=== PATIENT | female | born 1980 | race Caucasian/White ===

== ENCOUNTER 2020-10-18 08:16 | Emergency (ER) | payer SELFPAY ==
[~2020-10-18] VITALS: Ht 187.9 cm; Wt 113.4 kg
[~2020-10-18 08:16] MED LIST: ALBUTEROL0.09 MG/A2 IH; AMOXICILLIN500 MG PO; ANAPROX DS550 MG PO; AUGMENTIN 875875 MG PO; B12-METHYL1000 MCG PO; BACTRIM DS 8001 TA1 PO; BACTROBAN CREAM15 GM PO; CATAPRES0.1 MG PO; CELEXA10 MG PO; CLARITIN10 MG PO; CYMBALTA60 M1 PO; DAYPRO600 M1 PO; DIFLUCAN150 MG PO; EXCEDRIN MIGRAI1 TA1 PO; FLEXERIL5 MG PO; FLONASE 0.05% 121 EA NAS; HYDROCODONE BIT1 T11 PO; HYDRODIURIL25 MG PO; K-DUR 20MEQ20 MEQ PO; KEFLEX500 MG PO; LASIX20 MG PO; LISINOPRIL HCTZ1 TA1 PO; LISINOPRIL20 MG PO; LISINOPRIL40 MG PO; LOPRESSOR100 MG PO; LOPRESSOR25 MG; Lunesta2 MG PO; MOTRIN800 MG PO; NAPROSYN500 MG PO; NORCO 325 MG-51 TAB PO; NORVASC10 MG PO; NORVASC5 MG PO; PAROXETINE20 MG PO; SYNTHROID,LEVO25 MCG PO; TESSALON PERLE200 MG PO; TRAMADOL HCL50 MG PO; TRIMOX500 MG PO; VICODIN 500 MG-1 TAB PO; VISTARIL50 MG PO; ZESTRIL,PRINIVI20 MG PO; ZESTRIL40 MG PO; ZITHROMAX Z PA250 MG PO; [UNRECOGNIZED DRUG - OTHER] T
[2020-10-18 08:33] VITALS: BP 150/94
[2020-10-18] MEDS ORDERED: LOSARTAN POTAS100 M1 PO (08:35)
[2020-10-18 09:29] LABS: BASO % 0.2 % (0.0-1.0); EOS % 0.6 % (1.0-4.0); HEMATOCRIT 32.6 % (37.0-47.0); LYMPH # 1.2 10*3/uL (1.3-4.4); LYMPH % 19.2 % (27.0-41.0); MEAN CELL VOLUME 81.7 fl (81.0-99.0); MEAN CORPUSCULAR HGB 24.8 pg (27.0-31.0); MEAN CORPUSCULAR HGB CONC 30.4 g/dl (33.0-37.0); MONO # 0.6 10*3/uL (0.1-1.0); MONO % 9.1 % (3.0-9.0); NEUT # 4.4 10*3/uL (2.3-7.9); NEUT % 70.6 % (47.0-73.0); PLATELET COUNT AUTOMATED 311 10*3/uL (130-400); RED BLOOD COUNT 3.99 10*6/uL (4.10-5.10); RED CELL DISTRI WIDTH 17.6 % (0-14.5); WHITE BLOOD COUNT 6.3 10*3/uL (4.8-10.8)
[2020-10-18 09:52] LABS: ALBUMIN 3.5 gm/dl (3.1-4.5); ALKALINE PHOSPHATASE 71 U/L (45-117); BUN 10 mg/dl (7-24); CHLORIDE 110 mmol/L (98-107); CREATININE 0.72 mg/dL (0.55-1.02); LIPASE 133 U/L (73-393); POTASSIUM 3.7 mmol/L (3.5-5.1); SGOT/AST 10 IU/L (3-35); SGPT/ALT 16 U/L (12-78); SODIUM 140 mmol/L (136-145)
[2020-10-18 09:54] LABS: TROPONIN I < 0.015 ng/ml (<0.045)
[2020-10-18 10:21] LABS: BILIRUBIN Negative (Negative); BLOOD Negative (Negative); CLARITY Cloudy (Clear); COLOR Dark Yellow (Yellow); GLUCOSE Negative (Negative); KETONE Trace (Negative); LEUKO ESTERASE Trace (Negative); NITRITE Negative (Negative); PH 5.5 (4.5-8.0); SPECIFIC GRAVITY 1.025 (1.001-1.030)
[2020-10-18 10:32] LABS: BACTERIA 1+; MUCOUS 2+; RBC 0-2 rbc/hpf (0-2); WBC 0-2 wbc/hpf (0-5)
[2020-10-18] MEDS ORDERED: Motrin,Rufen800 MG PO (13:01)
== END 2020-10-18 13:20 | disposition home or self-care (01) ==
LOC: ED 08:16
PROVIDERS: Emergency Medicine
DX: Z04.3 Encounter for examination and observation following other accident (principal); Z79.899 Other long term (current) drug therapy; W19.XXXA Unspecified fall, initial encounter; Y93.89 Activity, other specified; Y92.89 Other specified places as the place of occurrence of the external cause; Y99.8 Other external cause status

== ENCOUNTER 2020-12-27 11:00 | Emergency (ER) | payer SELFPAY ==
[~2020-12-27] VITALS: Ht 185.4 cm; Wt 113.4 kg
[~2020-12-27 11:00] MED LIST changes: +LOSARTAN POTAS100 M1 PO; +Motrin,Rufen800 MG PO
[2020-12-27 11:47] LABS: BILIRUBIN Negative (Negative); BLOOD Negative (Negative); CLARITY Cloudy (Clear); COLOR Yellow (Yellow); GLUCOSE Negative (Negative); KETONE Trace (Negative); LEUKO ESTERASE 1+ (Negative); NITRITE Negative (Negative); SPECIFIC GRAVITY 1.025 (1.001-1.030)
[2020-12-27 12:10] LABS: BACTERIA TRACE; EPITHELIAL CELLS TNTC; MUCOUS 2+
[2020-12-27 13:32] LABS: BASO % 0.3 % (0.0-1.0); EOS # 0.1 10*3/uL (0.0-0.4); EOS % 0.9 % (1.0-4.0); HEMATOCRIT 28.5 % (37.0-47.0); LYMPH # 1.8 10*3/uL (1.3-4.4); LYMPH % 27.9 % (27.0-41.0); MEAN CELL VOLUME 81.2 fl (81.0-99.0); MEAN CORPUSCULAR HGB 23.9 pg (27.0-31.0); MEAN CORPUSCULAR HGB CONC 29.5 g/dl (33.0-37.0); MEAN PLATELET VOLUME 10.1 fl (9.6-12.3); MONO # 0.6 10*3/uL (0.1-1.0); MONO % 8.6 % (3.0-9.0); NEUT # 4.1 10*3/uL (2.3-7.9); NEUT % 62.1 % (47.0-73.0); PLATELET COUNT AUTOMATED 264 10*3/uL (130-400); RED BLOOD COUNT 3.51 10*6/uL (4.10-5.10); RED CELL DISTRI WIDTH 18.5 % (0-14.5); WHITE BLOOD COUNT 6.5 10*3/uL (4.8-10.8)
[2020-12-27 13:42] LABS: ACT PARTIAL THROMBO TIME 24.7 SECONDS (20.0-32.1)
[2020-12-27 13:47] LABS: ALBUMIN 3.6 gm/dl (3.1-4.5); ALKALINE PHOSPHATASE 58 U/L (45-117); BUN 14 mg/dl (7-24); CHLORIDE 113 mmol/L (98-107); CREATININE 0.67 mg/dL (0.55-1.02); LIPASE 149 U/L (73-393); POTASSIUM 4.3 mmol/L (3.5-5.1); SGOT/AST 8 IU/L (3-35); SGPT/ALT 17 U/L (12-78); SODIUM 142 mmol/L (136-145); TOTAL PROTEIN 6.7 gm/dL (6.4-8.2); TROPONIN I < 0.015 ng/ml (<0.045)
[2020-12-27 17:11] VITALS: BP 137/86
== END 2020-12-27 17:15 | disposition home or self-care (01) ==
LOC: ED 11:00
PROVIDERS: Family Medicine; Physician Assistant
DX: R42 Dizziness and giddiness (principal); I10 Essential (primary) hypertension; F32.9 Major depressive disorder, single episode, unspecified; Z79.899 Other long term (current) drug therapy; Z98.51 Tubal ligation status

== ENCOUNTER → 2021-06-04 | Outpatient (CLI) | payer OTHER ==
[2021-06-04 09:18] LABS: BASO % 0.4 % (0.0-1.0); EOS # 0.1 10*3/uL (0.0-0.4); EOS % 1.5 % (1.0-4.0); HEMATOCRIT 42.7 % (37.0-47.0); LYMPH # 1.6 10*3/uL (1.3-4.4); LYMPH % 34.5 % (27.0-41.0); MEAN CELL VOLUME 93.6 fl (81.0-99.0); MEAN CORPUSCULAR HGB 31.8 pg (27.0-31.0); MEAN PLATELET VOLUME 10.8 fl (9.6-12.3); MONO # 0.4 10*3/uL (0.1-1.0); MONO % 8.5 % (3.0-9.0); NEUT # 2.5 10*3/uL (2.3-7.9); NEUT % 54.9 % (47.0-73.0); PLATELET COUNT AUTOMATED 187 10*3/uL (130-400); RED BLOOD COUNT 4.56 10*6/uL (4.10-5.10); RED CELL DISTRI WIDTH 12.8 % (0-14.5); RETICULOCYTE % 1.32 % (0.50-2.50); WHITE BLOOD COUNT 4.6 10*3/uL (4.8-10.8)
[2021-06-06 01:05] LABS: FACTOR VIII ACTIVITY 138 % (56-140); VON WILLEBRAND ACTIVITY 119 % (50-200)
== END | disposition home or self-care (01) ==
LOC: LAB 08:43
PROVIDERS: ATTEND Internal Medicine Hematology & Oncology
DX: D64.9 Anemia, unspecified (principal); R23.8 Other skin changes; D50.9 Iron deficiency anemia, unspecified; N92.0 Excessive and frequent menstruation with regular cycle; R06.02 Shortness of breath

== ENCOUNTER 2022-08-18 21:21 | Emergency (ER) | payer OTHER ==
[~2022-08-18] VITALS: Ht 187.9 cm; Wt 111.1 kg
[~2022-08-18 21:21] MED LIST changes: +COLACE100 MG PO; +EFFEXOR XR75 M1 PO; +IRBESARTAN150 MG PO; -LOPRESSOR100 MG PO; +LOPRESSOR25 MG PO; +ONDANSETRON HYDR4 M1 PO; +PERCOCET 5-3251 EACH PO; +SENNA-S TABLET1 EACH PO
[2022-08-18 22:00] LABS: BILIRUBIN Negative (Negative); BLOOD Negative (Negative); CLARITY Cloudy (Clear); COLOR Yellow (Yellow); GLUCOSE Negative (Negative); KETONE Trace (Negative); LEUKO ESTERASE Negative (Negative); NITRITE Negative (Negative); PH 5.5 (4.5-8.0); SPECIFIC GRAVITY 1.025 (1.001-1.030)
[2022-08-18 22:18] LABS: BASO % 0.5 % (0.0-1.0); EOS # 0.1 10*3/uL (0.0-0.4); EOS % 2.2 % (1.0-4.0); HEMATOCRIT 38.8 % (37.0-47.0); LYMPH # 2.4 10*3/uL (1.3-4.4); MEAN CELL VOLUME 92.8 fl (81.0-99.0); MEAN CORPUSCULAR HGB 31.6 pg (27.0-31.0); MEAN PLATELET VOLUME 10.4 fl (9.6-12.3); MONO # 0.8 10*3/uL (0.1-1.0); MONO % 12.8 % (3.0-9.0); NEUT # 2.9 10*3/uL (2.3-7.9); NEUT % 46.3 % (47.0-73.0); PLATELET COUNT AUTOMATED 182 10*3/uL (130-400); RED BLOOD COUNT 4.18 10*6/uL (4.10-5.10); RED CELL DISTRI WIDTH 13.2 % (0-14.5); WHITE BLOOD COUNT 6.3 10*3/uL (4.8-10.8)
[2022-08-18 22:21] LABS: BACTERIA 1+; EPITHELIAL CELLS 21-30
[2022-08-18 22:22] LABS: RBC 0-2 rbc/hpf (0-2); WBC 0-2 wbc/hpf (0-5)
[2022-08-18 22:39] LABS: ALKALINE PHOSPHATASE 61 U/L (45-117); BUN 12 mg/dl (7-24); CHLORIDE 111 mmol/L (98-107); LIPASE 274 U/L (73-393); SGOT/AST 11 IU/L (3-35); SGPT/ALT 19 U/L (12-78); SODIUM 141 mmol/L (136-145); TOTAL PROTEIN 6.2 gm/dL (6.4-8.2)
[2022-08-18 22:58] VITALS: BP 99/45
== END 2022-08-18 23:06 | disposition home or self-care (01) ==
LOC: ED 21:21
PROVIDERS: Emergency Medicine
DX: R10.31 Right lower quadrant pain (principal); R11.0 Nausea; Z79.899 Other long term (current) drug therapy; Z90.710 Acquired absence of both cervix and uterus; Z98.890 Other specified postprocedural states; Z98.51 Tubal ligation status

== ENCOUNTER 2023-04-17 10:39 | Emergency (ER) | payer OTHER ==
[~2023-04-17] VITALS: Wt 104.3 kg
[2023-04-17] MEDS ORDERED: VIBRAMYCIN100 MG PO (10:50)
[2023-04-17 10:51] VITALS: BP 130/82
[2023-04-17 11:20] LABS: BASO % 0.3 % (0.0-1.0); EOS # 0.1 10*3/uL (0.0-0.4); EOS % 1.1 % (1.0-4.0); HEMATOCRIT 44.9 % (37.0-47.0); LYMPH # 1.5 10*3/uL (1.3-4.4); LYMPH % 22.6 % (27.0-41.0); MEAN CELL VOLUME 95.9 fl (81.0-99.0); MEAN CORPUSCULAR HGB 33.8 pg (27.0-31.0); MEAN CORPUSCULAR HGB CONC 35.2 g/dl (33.0-37.0); MEAN PLATELET VOLUME 10.6 fl (9.6-12.3); MONO # 0.6 10*3/uL (0.1-1.0); MONO % 8.6 % (3.0-9.0); NEUT # 4.4 10*3/uL (2.3-7.9); NEUT % 67.1 % (47.0-73.0); PLATELET COUNT AUTOMATED 160 10*3/uL (130-400); RED BLOOD COUNT 4.68 10*6/uL (4.10-5.10); RED CELL DISTRI WIDTH 11.8 % (0-14.5); WHITE BLOOD COUNT 6.6 10*3/uL (4.8-10.8)
[2023-04-17 11:56] LABS: BILIRUBIN Negative (Negative); BLOOD Negative (Negative); CLARITY Cloudy (Clear); COLOR Dark Yellow (Yellow); GLUCOSE Negative (Negative); KETONE Trace (Negative); LEUKO ESTERASE Negative (Negative); NITRITE Negative (Negative); PH 5.5 (4.5-8.0); SPECIFIC GRAVITY 1.025 (1.001-1.030)
[2023-04-17 11:57] LABS: ALKALINE PHOSPHATASE 74 U/L (46-116); BUN 12 mg/dl (9-23); CHLORIDE 108 mmol/L (98-107); LIPASE 41 U/L (12-53); POTASSIUM 4.3 mmol/L (3.4-5.1); SGPT/ALT 21 U/L (10-49); TOTAL PROTEIN 6.9 gm/dL (6.0-8.0)
[2023-04-17 12:08] LABS: BACTERIA 2+; CALCIUM OXALATE CRYSTALS 1+
[2023-04-17] MEDS ORDERED: ONDANSETRON4 MG SL (13:37)
[2023-04-17] MEDS ORDERED: TRAMADOL HCL50 MG PO (13:37)
== END 2023-04-17 13:53 | disposition home or self-care (01) ==
LOC: ED 10:39
PROVIDERS: Student in an Organized Health Care Education/Training Program
DX: K56.7 Ileus, unspecified (principal); R11.0 Nausea; F32.A Depression, unspecified; I10 Essential (primary) hypertension; J45.909 Unspecified asthma, uncomplicated; E03.9 Hypothyroidism, unspecified; Z90.710 Acquired absence of both cervix and uterus; Z98.890 Other specified postprocedural states; Z98.51 Tubal ligation status; F17.200 Nicotine dependence, unspecified, uncomplicated; Z90.49 Acquired absence of other specified parts of digestive tract

== ENCOUNTER 2023-04-19 18:34 | Emergency (ER) | payer OTHER ==
[~2023-04-19] VITALS: Ht 185.4 cm; Wt 104.3 kg
[~2023-04-19 18:34] MED LIST changes: +ONDANSETRON4 MG SL; +VIBRAMYCIN100 MG PO
[2023-04-19 18:39] VITALS: BP 144/80
[2023-04-19 19:07] LABS: BASO % 0.3 % (0.0-1.0); EOS # 0.2 10*3/uL (0.0-0.4); EOS % 2.3 % (1.0-4.0); HEMATOCRIT 45.3 % (37.0-47.0); LYMPH # 2.1 10*3/uL (1.3-4.4); LYMPH % 27.8 % (27.0-41.0); MEAN CELL VOLUME 96.6 fl (81.0-99.0); MEAN CORPUSCULAR HGB 33.3 pg (27.0-31.0); MEAN CORPUSCULAR HGB CONC 34.4 g/dl (33.0-37.0); MEAN PLATELET VOLUME 10.8 fl (9.6-12.3); MONO # 0.8 10*3/uL (0.1-1.0); MONO % 10.2 % (3.0-9.0); NEUT # 4.6 10*3/uL (2.3-7.9); NEUT % 59.3 % (47.0-73.0); PLATELET COUNT AUTOMATED 173 10*3/uL (130-400); RED BLOOD COUNT 4.69 10*6/uL (4.10-5.10); RED CELL DISTRI WIDTH 11.9 % (0-14.5); WHITE BLOOD COUNT 7.7 10*3/uL (4.8-10.8)
[2023-04-19 19:13] LABS: BILIRUBIN Negative (Negative); BLOOD Negative (Negative); CLARITY Clear (Clear); COLOR Yellow (Yellow); GLUCOSE Negative (Negative); KETONE Trace (Negative); LEUKO ESTERASE Negative (Negative); NITRITE Negative (Negative); PH 5.5 (4.5-8.0)
[2023-04-19 19:20] LABS: BACTERIA 2+; MUCOUS TRACE
[2023-04-19 19:25] LABS: ALKALINE PHOSPHATASE 73 U/L (46-116); BUN 12 mg/dl (9-23); CHLORIDE 106 mmol/L (98-107); POTASSIUM 4.4 mmol/L (3.4-5.1); SGPT/ALT 21 U/L (10-49)
[2023-04-19] MEDS ORDERED: AMOX-CLAV 875-1 EACH PO (19:46)
== END 2023-04-19 19:52 | disposition home or self-care (01) ==
LOC: ED 18:34
PROVIDERS: Student in an Organized Health Care Education/Training Program
DX: M54.9 Dorsalgia, unspecified (principal); F41.9 Anxiety disorder, unspecified; R11.2 Nausea with vomiting, unspecified; T50.905A Adverse effect of unspecified drugs, medicaments and biological substances, initial encounter; F32.A Depression, unspecified; I10 Essential (primary) hypertension; J45.909 Unspecified asthma, uncomplicated; Z90.49 Acquired absence of other specified parts of digestive tract; Z98.890 Other specified postprocedural states; Z90.710 Acquired absence of both cervix and uterus; Z98.51 Tubal ligation status; F17.200 Nicotine dependence, unspecified, uncomplicated; Y92.89 Other specified places as the place of occurrence of the external cause

== ENCOUNTER 2023-10-06 10:31 | Emergency (ER) | payer OTHER ==
[~2023-10-06] VITALS: Ht 185.4 cm; Wt 97.5 kg
[~2023-10-06 10:31] MED LIST changes: +AMOX-CLAV 875-1 EACH PO
[2023-10-06 11:28] LABS: BASO % 0.4 % (0.0-1.0); EOS # 0.2 10*3/uL (0.0-0.4); EOS % 2.3 % (1.0-4.0); HEMATOCRIT 30.9 % (37.0-47.0); LYMPH # 1.3 10*3/uL (1.3-4.4); LYMPH % 17.3 % (27.0-41.0); MEAN CORPUSCULAR HGB 31.4 pg (27.0-31.0); MEAN CORPUSCULAR HGB CONC 31.1 g/dl (33.0-37.0); MEAN PLATELET VOLUME 8.7 fl (9.6-12.3); MONO # 0.6 10*3/uL (0.1-1.0); MONO % 8.6 % (3.0-9.0); NEUT # 5.1 10*3/uL (2.3-7.9); PLATELET COUNT AUTOMATED 422 10*3/uL (130-400); RED BLOOD COUNT 3.06 10*6/uL (4.10-5.10); RED CELL DISTRI WIDTH 14.5 % (0-14.5); WHITE BLOOD COUNT 7.2 10*3/uL (4.8-10.8)
[2023-10-06 11:37] LABS: ACT PARTIAL THROMBO TIME 27.8 SECONDS (20.0-32.1)
[2023-10-06 11:49] LABS: ALKALINE PHOSPHATASE 76 U/L (46-116); BUN 10 mg/dl (9-23); CHLORIDE 104 mmol/L (98-107); POTASSIUM 4.2 mmol/L (3.4-5.1); SGPT/ALT 7 U/L (5-49); TOTAL PROTEIN 7.2 gm/dL (6.0-8.0)
[2023-10-06 16:09] VITALS: BP 100/66
== END 2023-10-06 18:55 | disposition home or self-care (01) ==
LOC: ED 10:31
PROVIDERS: Nurse Practitioner Family
DX: R07.89 Other chest pain (principal); R07.81 Pleurodynia; D64.9 Anemia, unspecified; J98.11 Atelectasis; J90 Pleural effusion, not elsewhere classified; J45.909 Unspecified asthma, uncomplicated; E87.8 Other disorders of electrolyte and fluid balance, not elsewhere classified; F41.9 Anxiety disorder, unspecified; F32.A Depression, unspecified; I10 Essential (primary) hypertension; Z90.710 Acquired absence of both cervix and uterus; Z98.890 Other specified postprocedural states; Z98.51 Tubal ligation status; Z90.49 Acquired absence of other specified parts of digestive tract; F17.200 Nicotine dependence, unspecified, uncomplicated

== ENCOUNTER → 2023-12-01 | Outpatient (CLI) | payer OTHER | END | disposition home or self-care (01) | LOC: RAD 08:41 | PROVIDERS: ATTEND Nurse Practitioner | DX: K59.00 Constipation, unspecified (principal); Z90.49 Acquired absence of other specified parts of digestive tract ==

== ENCOUNTER → 2023-12-03 | Outpatient (CLI) | payer OTHER | END | disposition home or self-care (01) | LOC: RAD 01:16 | PROVIDERS: ATTEND Nurse Practitioner | DX: K59.00 Constipation, unspecified (principal); Z90.49 Acquired absence of other specified parts of digestive tract ==

== ENCOUNTER → 2023-12-05 | Outpatient (CLI) | payer OTHER | END | disposition home or self-care (01) | LOC: RAD 01:20 | PROVIDERS: ATTEND Nurse Practitioner | DX: K59.00 Constipation, unspecified (principal); Z98.890 Other specified postprocedural states ==

== ENCOUNTER 2024-01-25 04:19 | Emergency (ER) | payer OTHER ==
[~2024-01-25] VITALS: Ht 185.4 cm; Wt 111.1 kg
[2024-01-25] MEDS ORDERED: IOHEXOL 9 MG/ML (IODINE) ORAL SOLUTION PO ONE (05:15)
[2024-01-25 05:24] VITALS: BP 113/67
[2024-01-25 05:29] LABS: ALKALINE PHOSPHATASE 71 U/L (46-116); BUN 19 mg/dl (9-23); CHLORIDE 104 mmol/L (98-107); LIPASE 42 U/L (12-53); SGPT/ALT 17 U/L (5-49); TOTAL PROTEIN 7.1 gm/dL (6.0-8.0)
[2024-01-25 06:05] LABS: BASO % 0.7 % (0.0-1.0); EOS # 0.1 10*3/uL (0.0-0.4); EOS % 3.2 % (1.0-4.0); HEMATOCRIT 44.6 % (37.0-47.0); LYMPH # 1.7 10*3/uL (1.3-4.4); LYMPH % 37.6 % (27.0-41.0); MEAN CELL VOLUME 91.6 fl (81.0-99.0); MEAN CORPUSCULAR HGB 29.8 pg (27.0-31.0); MEAN CORPUSCULAR HGB CONC 32.5 g/dl (33.0-37.0); MEAN PLATELET VOLUME 10.6 fl (9.6-12.3); MONO # 0.5 10*3/uL (0.1-1.0); MONO % 11.1 % (3.0-9.0); NEUT # 2.1 10*3/uL (2.3-7.9); NEUT % 47.2 % (47.0-73.0); PLATELET COUNT AUTOMATED 220 10*3/uL (130-400); RED BLOOD COUNT 4.87 10*6/uL (4.10-5.10); RED CELL DISTRI WIDTH 11.9 % (0-14.5); WHITE BLOOD COUNT 4.4 10*3/uL (4.8-10.8)
== END 2024-01-25 08:22 | disposition home or self-care (01) ==
LOC: ED 04:19
PROVIDERS: Internal Medicine
DX: K56.699 Other intestinal obstruction unspecified as to partial versus complete obstruction (principal); R11.2 Nausea with vomiting, unspecified; K94.09 Other complications of colostomy; F32.A Depression, unspecified; I10 Essential (primary) hypertension; J45.909 Unspecified asthma, uncomplicated; Z98.890 Other specified postprocedural states; Z90.710 Acquired absence of both cervix and uterus; Z98.51 Tubal ligation status; F17.200 Nicotine dependence, unspecified, uncomplicated

== ENCOUNTER → 2024-06-16 | Outpatient (CLI) | payer OTHER ==
[2024-06-16 08:12] LABS: BASO % 0.6 % (0.0-1.0); EOS # 0.1 10*3/uL (0.0-0.4); EOS % 1.9 % (1.0-4.0); HEMATOCRIT 44.3 % (37.0-47.0); LYMPH # 1.7 10*3/uL (1.3-4.4); LYMPH % 32.7 % (27.0-41.0); MEAN CELL VOLUME 95.7 fl (81.0-99.0); MEAN CORPUSCULAR HGB CONC 33.4 g/dl (33.0-37.0); MEAN PLATELET VOLUME 10.3 fl (9.6-12.3); MONO # 0.4 10*3/uL (0.1-1.0); MONO % 8.4 % (3.0-9.0); NEUT # 2.9 10*3/uL (2.3-7.9); NEUT % 56.2 % (47.0-73.0); PLATELET COUNT AUTOMATED 197 10*3/uL (130-400); RED BLOOD COUNT 4.63 10*6/uL (4.10-5.10); RED CELL DISTRI WIDTH 12.5 % (0-14.5); WHITE BLOOD COUNT 5.2 10*3/uL (4.8-10.8)
[2024-06-16 08:43] LABS: ALKALINE PHOSPHATASE 85 U/L (46-116); BUN 8 mg/dl (9-23); CHLORIDE 107 mmol/L (98-107); CHOLESTEROL 164 mg/dL (<200); LDL CHOLESTEROL 75 mg/dL (9-159); POTASSIUM 4.3 mmol/L (3.4-5.1); SGPT/ALT 20 U/L (5-49); TOTAL PROTEIN 7.5 gm/dL (6.0-8.0); TRIGLYCERIDES 124 mg/dl (<150)
== END | disposition home or self-care (01) ==
LOC: LAB 07:47
PROVIDERS: ATTEND Nurse Practitioner Primary Care
DX: Z01.818 Encounter for other preprocedural examination (principal); E03.9 Hypothyroidism, unspecified; I10 Essential (primary) hypertension; K42.9 Umbilical hernia without obstruction or gangrene

== ENCOUNTER 2024-07-19 07:25 | Emergency (ER) | payer OTHER ==
[~2024-07-19] VITALS: Ht 185.4 cm; Wt 115.7 kg
[2024-07-19 07:59] VITALS: BP 118/83
[2024-07-19] MEDS ORDERED: XANAX0.5 MG PO (08:01)
[2024-07-19] MEDS ORDERED: METHOCARBAMOL500 M1 PO (08:01)
== END 2024-07-19 10:11 | disposition home or self-care (01) ==
LOC: ED 07:25
DX: S93.401A Sprain of unspecified ligament of right ankle, initial encounter (principal); F32.A Depression, unspecified; I10 Essential (primary) hypertension; J45.909 Unspecified asthma, uncomplicated; E03.9 Hypothyroidism, unspecified; F17.200 Nicotine dependence, unspecified, uncomplicated; Z98.51 Tubal ligation status; Z90.710 Acquired absence of both cervix and uterus; Z98.890 Other specified postprocedural states; Z90.49 Acquired absence of other specified parts of digestive tract; X50.1XXA Overexertion from prolonged static or awkward postures, initial encounter; Y93.89 Activity, other specified; Y92.89 Other specified places as the place of occurrence of the external cause; Y99.8 Other external cause status

== ENCOUNTER → 2024-08-09 | Outpatient (CLI) | payer OTHER ==
[~2024-08-09] MED LIST changes: +METHOCARBAMOL500 M1 PO; +XANAX0.5 MG PO
== END | disposition home or self-care (01) ==
LOC: RAD 10:06
PROVIDERS: ATTEND Nurse Practitioner Primary Care
DX: J90 Pleural effusion, not elsewhere classified (principal); J40 Bronchitis, not specified as acute or chronic

== ENCOUNTER → 2024-08-14 | Outpatient (CLI) | payer OTHER | END | disposition home or self-care (01) | LOC: CT 00:56 | PROVIDERS: ATTEND Nurse Practitioner Primary Care | DX: Z01.818 Encounter for other preprocedural examination (principal); R06.02 Shortness of breath; J90 Pleural effusion, not elsewhere classified; I25.10 Atherosclerotic heart disease of native coronary artery without angina pectoris ==

== ENCOUNTER → 2024-11-05 | Outpatient (CLI) | payer OTHER | END | disposition home or self-care (01) | LOC: LAB 09:44 | PROVIDERS: ATTEND Nurse Practitioner Primary Care | DX: E53.8 Deficiency of other specified B group vitamins (principal) ==

== ENCOUNTER 2024-12-08 07:23 | Emergency (ER) | payer OTHER ==
[~2024-12-08] VITALS: Wt 111.1 kg
[2024-12-08 07:41] VITALS: BP 152/115
[2024-12-08] MEDS ORDERED: Metoclopramide Hydrochloride 10 MG/2 ML VIAL IV ONE (07:50)
[2024-12-08] MEDS ORDERED: SODIUM CHLORIDE 0.9% 1,000 ML IV ONE (07:50)
[2024-12-08] MEDS ORDERED: diphenhydrAMINE hydrochloride 50 MG/ML VIAL IV ONE (07:50)
[2024-12-08] MEDS ORDERED: Ketorolac Tromethamine 15 MG/ML VIAL IV ONE (07:50)
[2024-12-08 08:06] LABS: BASO % 0.5 % (0.0-1.0); EOS # 0.1 10*3/uL (0.0-0.4); EOS % 1.4 % (1.0-4.0); MEAN CELL VOLUME 94.1 fl (81.0-99.0); MEAN CORPUSCULAR HGB 31.3 pg (27.0-31.0); MEAN CORPUSCULAR HGB CONC 33.3 g/dl (33.0-37.0); MEAN PLATELET VOLUME 9.7 fl (9.6-12.3); MONO # 0.4 10*3/uL (0.1-1.0); MONO % 9.2 % (3.0-9.0); NEUT # 2.7 10*3/uL (2.3-7.9); NEUT % 60.9 % (47.0-73.0); PLATELET COUNT AUTOMATED 199 10*3/uL (130-400); RED BLOOD COUNT 4.89 10*6/uL (4.10-5.10); RED CELL DISTRI WIDTH 12.2 % (0-14.5); WHITE BLOOD COUNT 4.4 10*3/uL (4.8-10.8)
[2024-12-08 08:25] LABS: BUN 7 mg/dl (9-23); CHLORIDE 106 mmol/L (98-107); POTASSIUM 4.6 mmol/L (3.4-5.1)
[2024-12-08] MEDS ORDERED: AVPAK AZITHROM250 M1 PO (09:18)
== END 2024-12-08 09:23 | disposition home or self-care (01) ==
LOC: ED 07:23
PROVIDERS: Emergency Medicine
DX: J32.9 Chronic sinusitis, unspecified (principal); Z20.822 Contact with and (suspected) exposure to COVID-19; R51.9 Headache, unspecified; R61 Generalized hyperhidrosis; I10 Essential (primary) hypertension; E78.5 Hyperlipidemia, unspecified; F32.A Depression, unspecified; J45.909 Unspecified asthma, uncomplicated; E03.9 Hypothyroidism, unspecified; F17.200 Nicotine dependence, unspecified, uncomplicated; Z90.710 Acquired absence of both cervix and uterus; Z98.890 Other specified postprocedural states; Z98.51 Tubal ligation status; Z90.49 Acquired absence of other specified parts of digestive tract

== ENCOUNTER → 2024-12-14 | Outpatient (CLI) | payer OTHER ==
[~2024-12-14] MED LIST changes: +AVPAK AZITHROM250 M1 PO; +IOHEXOL 300 MG/ML 100 ML VIAL IV ONE; +IOHEXOL 300 MG/ML 100 ML VIAL ONE
== END | disposition home or self-care (01) ==
LOC: CT 00:13
PROVIDERS: ATTEND Student in an Organized Health Care Education/Training Program
DX: K46.9 Unspecified abdominal hernia without obstruction or gangrene (principal); Z93.2 Ileostomy status; Z90.49 Acquired absence of other specified parts of digestive tract

== ENCOUNTER → 2025-01-05 | Outpatient (CLI) | payer OTHER ==
[~2025-01-05] MED LIST changes: -IOHEXOL 300 MG/ML 100 ML VIAL IV ONE; -IOHEXOL 300 MG/ML 100 ML VIAL ONE
[2025-01-05 12:03] LABS: BASO % 0.4 % (0.0-1.0); EOS # 0.1 10*3/uL (0.0-0.4); EOS % 1.1 % (1.0-4.0); HEMATOCRIT 45.2 % (37.0-47.0); MEAN CELL VOLUME 91.9 fl (81.0-99.0); MEAN CORPUSCULAR HGB 32.1 pg (27.0-31.0); MEAN PLATELET VOLUME 9.5 fl (9.6-12.3); MONO # 0.4 10*3/uL (0.1-1.0); MONO % 6.7 % (3.0-9.0); NEUT # 3.1 10*3/uL (2.3-7.9); NEUT % 56.6 % (47.0-73.0); PLATELET COUNT AUTOMATED 236 10*3/uL (130-400); RED BLOOD COUNT 4.92 10*6/uL (4.10-5.10); RED CELL DISTRI WIDTH 12.8 % (0-14.5); WHITE BLOOD COUNT 5.4 10*3/uL (4.8-10.8)
[2025-01-05 13:01] LABS: ALKALINE PHOSPHATASE 77 U/L (46-116); BUN 8 mg/dl (9-23); CHLORIDE 107 mmol/L (98-107); POTASSIUM 4.1 mmol/L (3.4-5.1); SGPT/ALT 21 U/L (5-49); TOTAL PROTEIN 7.6 gm/dL (6.0-8.0); URIC ACID 4.3 mg/dL (3.1-7.8)
[2025-01-05 13:25] LABS: FREE T4 1.08 ng/dl (0.89-1.76)
[2025-01-06 10:06] LABS: ANTI-DSDNA ANTIBODIES <1 IU/mL (0-9); ANTI-RNP ANTIBODIES 0.2 AI (0.0-0.9); ANTICHROMATIN ANTIBODIES <0.2 AI (0.0-0.9); ANTISCLERODERMA-70 AB <0.2 AI (0.0-0.9)
[2025-01-06 11:06] LABS: ANTI-DSDNA ANTIBODIES <1 IU/mL (0-9); ANTICHROMATIN ANTIBODIES <0.2 AI (0.0-0.9)
== END | disposition home or self-care (01) ==
LOC: LAB 11:36
PROVIDERS: ATTEND Nurse Practitioner Primary Care
DX: I10 Essential (primary) hypertension (principal); E03.9 Hypothyroidism, unspecified; M79.10 Myalgia, unspecified site; M25.50 Pain in unspecified joint

== ENCOUNTER 2025-05-16 09:35 | Emergency (ER) | payer OTHER ==
[~2025-05-16] VITALS: Ht 187.9 cm; Wt 117.9 kg
[2025-05-16 09:52] VITALS: BP 139/83
[2025-05-16] MEDS ORDERED: SODIUM CHLORIDE 0.9% 1,000 ML IV SCH (10:15)
[2025-05-16] MEDS ORDERED: Ondansetron Hydrochloride 4 MG/2 ML VIAL IV ONE ×2 (10:15→12:15)
[2025-05-16 10:29] LABS: BILIRUBIN Negative (Negative); BLOOD Negative (Negative); CLARITY Clear (Clear); COLOR Yellow (Yellow); KETONE Negative (Negative); LEUKO ESTERASE Negative (Negative); NITRITE Negative (Negative); PH 6.5 (4.5-8.0); SPECIFIC GRAVITY 1.010 (1.001-1.030); UROBILINOGEN 0.2 E.U./dl (0.0-1.0)
[2025-05-16] MEDS ORDERED: IOHEXOL 300 MG/ML 100 ML VIAL IV ONE (10:30)
[2025-05-16 10:41] LABS: BASO # 0.0 10*3/uL (0.0-0.1); BASO % 0.5 % (0.0-1.0); EOS # 0.1 10*3/uL (0.0-0.4); EOS % 1.2 % (1.0-4.0); MEAN CELL VOLUME 95.4 fl (81.0-99.0); MEAN CORPUSCULAR HGB 31.5 pg (27.0-31.0); MEAN PLATELET VOLUME 10.2 fl (9.6-12.3); MONO # 0.5 10*3/uL (0.1-1.0); MONO % 8.9 % (3.0-9.0); NEUT # 3.6 10*3/uL (2.3-7.9); NEUT % 61.3 % (47.0-73.0); NUCLEATED RED BLOOD CELL 0.0 % (0.0-0.0); NUCLEATED RED BLOOD CELL 0.0 10*3/uL (0.0-0.0); PLATELET COUNT AUTOMATED 218 10*3/uL (130-400); RED CELL DISTRI WIDTH 12.3 % (0-14.5)
[2025-05-16 10:55] LABS: BACTERIA 2+; RBC 0-2 rbc/hpf (0-2); WBC 0-2 wbc/hpf (0-5)
[2025-05-16 11:02] LABS: BUN 9 mg/dl (9-23); SGPT/ALT 16 U/L (5-49)
[2025-05-16] MEDS ORDERED: HYDROmorphONE Hydrochloride 0.5 MG/0.5 ML SYRINGE IV ONE (12:15)
[2025-05-16] MEDS ORDERED: AMOX-CLAV 875-1 EACH PO (14:26)
[2025-05-16] MEDS ORDERED: Ondansetron4 MG PO (14:26)
[2025-05-16] MEDS ORDERED: PERCOCET 5-3251 EACH PO (14:26)
== END 2025-05-16 14:33 | disposition home or self-care (01) ==
LOC: ED 09:35
PROVIDERS: Emergency Medicine
DX: L76.34 Postprocedural seroma of skin and subcutaneous tissue following other procedure (principal); F10.90 Alcohol use, unspecified, uncomplicated; Z90.710 Acquired absence of both cervix and uterus; Z98.890 Other specified postprocedural states; Z98.51 Tubal ligation status; Y90.9 Presence of alcohol in blood, level not specified

== ENCOUNTER → 2025-05-17 | Outpatient (CLI) | payer OTHER ==
[~2025-05-17] MED LIST changes: +Ondansetron4 MG PO
== END | disposition home or self-care (01) ==
LOC: WOUNDCARE
PROVIDERS: ATTEND Nurse Practitioner Family
DX: T81.89XA Other complications of procedures, not elsewhere classified, initial encounter (principal); L76.34 Postprocedural seroma of skin and subcutaneous tissue following other procedure; I10 Essential (primary) hypertension; G62.9 Polyneuropathy, unspecified; K91.89 Other postprocedural complications and disorders of digestive system; F41.9 Anxiety disorder, unspecified; F17.210 Nicotine dependence, cigarettes, uncomplicated; Z90.710 Acquired absence of both cervix and uterus; Z98.890 Other specified postprocedural states; Z79.899 Other long term (current) drug therapy; Y83.8 Other surgical procedures as the cause of abnormal reaction of the patient, or of later complication, without mention of misadventure at the time of the procedure; Y92.89 Other specified places as the place of occurrence of the external cause

== ENCOUNTER → 2025-05-20 | Outpatient (CLI) | payer OTHER | LOC: WOUNDCARE 02:18 | PROVIDERS: ATTEND Nurse Practitioner Family | DX: T81.89XD Other complications of procedures, not elsewhere classified, subsequent encounter (principal); L76.34 Postprocedural seroma of skin and subcutaneous tissue following other procedure; R60.9 Edema, unspecified; I10 Essential (primary) hypertension; K91.89 Other postprocedural complications and disorders of digestive system; G60.9 Hereditary and idiopathic neuropathy, unspecified; F41.9 Anxiety disorder, unspecified; F17.210 Nicotine dependence, cigarettes, uncomplicated; Z90.710 Acquired absence of both cervix and uterus; Z98.890 Other specified postprocedural states; Z98.51 Tubal ligation status; Z79.899 Other long term (current) drug therapy; Y83.8 Other surgical procedures as the cause of abnormal reaction of the patient, or of later complication, without mention of misadventure at the time of the procedure ==

== ENCOUNTER → 2025-05-24 | Outpatient (CLI) | payer OTHER | END | disposition home or self-care (01) | LOC: WOUNDCARE 01:31 | PROVIDERS: ATTEND Nurse Practitioner Family | DX: T81.89XD Other complications of procedures, not elsewhere classified, subsequent encounter (principal); L76.34 Postprocedural seroma of skin and subcutaneous tissue following other procedure; K91.89 Other postprocedural complications and disorders of digestive system; I10 Essential (primary) hypertension; G62.9 Polyneuropathy, unspecified; F41.9 Anxiety disorder, unspecified; F17.210 Nicotine dependence, cigarettes, uncomplicated; Z90.710 Acquired absence of both cervix and uterus; Z98.890 Other specified postprocedural states; Z79.899 Other long term (current) drug therapy; Y83.8 Other surgical procedures as the cause of abnormal reaction of the patient, or of later complication, without mention of misadventure at the time of the procedure ==

== ENCOUNTER → 2025-05-27 | Outpatient (CLI) | payer OTHER | LOC: WOUNDCARE 00:06 | PROVIDERS: ATTEND Nurse Practitioner Primary Care | DX: T81.89XD Other complications of procedures, not elsewhere classified, subsequent encounter (principal); L76.34 Postprocedural seroma of skin and subcutaneous tissue following other procedure; K91.89 Other postprocedural complications and disorders of digestive system; I10 Essential (primary) hypertension; F41.9 Anxiety disorder, unspecified; F17.210 Nicotine dependence, cigarettes, uncomplicated; Z90.710 Acquired absence of both cervix and uterus; Z98.890 Other specified postprocedural states; Z79.899 Other long term (current) drug therapy; Y83.8 Other surgical procedures as the cause of abnormal reaction of the patient, or of later complication, without mention of misadventure at the time of the procedure ==

== ENCOUNTER → 2025-05-31 | Outpatient (CLI) | payer OTHER | END | disposition home or self-care (01) | LOC: WOUNDCARE 01:08 | PROVIDERS: ATTEND Nurse Practitioner Family | DX: T81.89XD Other complications of procedures, not elsewhere classified, subsequent encounter (principal); L76.34 Postprocedural seroma of skin and subcutaneous tissue following other procedure; K91.89 Other postprocedural complications and disorders of digestive system; R60.9 Edema, unspecified; I10 Essential (primary) hypertension; G62.9 Polyneuropathy, unspecified; F41.9 Anxiety disorder, unspecified; F17.210 Nicotine dependence, cigarettes, uncomplicated; Z90.710 Acquired absence of both cervix and uterus; Z98.890 Other specified postprocedural states; Y83.8 Other surgical procedures as the cause of abnormal reaction of the patient, or of later complication, without mention of misadventure at the time of the procedure ==

== ENCOUNTER → 2025-06-07 | Outpatient (CLI) | payer OTHER | END | disposition home or self-care (01) | LOC: WOUNDCARE 03:00 | PROVIDERS: ATTEND Nurse Practitioner Family | DX: T81.89XD Other complications of procedures, not elsewhere classified, subsequent encounter (principal); L76.34 Postprocedural seroma of skin and subcutaneous tissue following other procedure; K91.89 Other postprocedural complications and disorders of digestive system; I10 Essential (primary) hypertension; G62.9 Polyneuropathy, unspecified; R60.9 Edema, unspecified; F41.9 Anxiety disorder, unspecified; F17.210 Nicotine dependence, cigarettes, uncomplicated; Z90.710 Acquired absence of both cervix and uterus; Z98.890 Other specified postprocedural states; Z79.899 Other long term (current) drug therapy; Y83.8 Other surgical procedures as the cause of abnormal reaction of the patient, or of later complication, without mention of misadventure at the time of the procedure ==

== ENCOUNTER → 2025-06-14 | Outpatient (CLI) | payer OTHER | END | disposition home or self-care (01) | LOC: WOUNDCARE 03:24 | PROVIDERS: ATTEND Nurse Practitioner Family | DX: T81.89XD Other complications of procedures, not elsewhere classified, subsequent encounter (principal); K91.89 Other postprocedural complications and disorders of digestive system; L98.492 Non-pressure chronic ulcer of skin of other sites with fat layer exposed; L76.34 Postprocedural seroma of skin and subcutaneous tissue following other procedure; R60.9 Edema, unspecified; I10 Essential (primary) hypertension; G62.9 Polyneuropathy, unspecified; F41.9 Anxiety disorder, unspecified; F17.210 Nicotine dependence, cigarettes, uncomplicated; Z90.710 Acquired absence of both cervix and uterus; Z98.890 Other specified postprocedural states; Z79.899 Other long term (current) drug therapy; Y83.8 Other surgical procedures as the cause of abnormal reaction of the patient, or of later complication, without mention of misadventure at the time of the procedure ==

== ENCOUNTER → 2025-06-22 | Outpatient (CLI) | payer OTHER | END | disposition home or self-care (01) | LOC: WOUNDCARE 02:52 | PROVIDERS: ATTEND Nurse Practitioner Family | DX: T81.89XD Other complications of procedures, not elsewhere classified, subsequent encounter (principal); L98.492 Non-pressure chronic ulcer of skin of other sites with fat layer exposed; L76.34 Postprocedural seroma of skin and subcutaneous tissue following other procedure; K91.89 Other postprocedural complications and disorders of digestive system; R60.9 Edema, unspecified; I10 Essential (primary) hypertension; G62.9 Polyneuropathy, unspecified; F41.9 Anxiety disorder, unspecified; F17.210 Nicotine dependence, cigarettes, uncomplicated; Z90.710 Acquired absence of both cervix and uterus; Z98.890 Other specified postprocedural states; Z79.899 Other long term (current) drug therapy; Y83.8 Other surgical procedures as the cause of abnormal reaction of the patient, or of later complication, without mention of misadventure at the time of the procedure ==

== ENCOUNTER → 2025-06-28 | Outpatient (CLI) | payer OTHER | END | disposition home or self-care (01) | LOC: WOUNDCARE 01:47 | PROVIDERS: ATTEND Nurse Practitioner Family | DX: T81.89XD Other complications of procedures, not elsewhere classified, subsequent encounter (principal); L76.34 Postprocedural seroma of skin and subcutaneous tissue following other procedure; I10 Essential (primary) hypertension; K91.89 Other postprocedural complications and disorders of digestive system; G62.9 Polyneuropathy, unspecified; F41.9 Anxiety disorder, unspecified; F17.210 Nicotine dependence, cigarettes, uncomplicated; Z98.890 Other specified postprocedural states; Z79.899 Other long term (current) drug therapy; Y83.8 Other surgical procedures as the cause of abnormal reaction of the patient, or of later complication, without mention of misadventure at the time of the procedure ==

== ENCOUNTER → 2025-07-07 | Outpatient (CLI) | payer OTHER | END | disposition home or self-care (01) | LOC: RAD 09:23 | PROVIDERS: ATTEND Nurse Practitioner Primary Care | DX: M54.9 Dorsalgia, unspecified (principal) ==

== ENCOUNTER → 2025-07-29 | Outpatient (CLI) | payer OTHER | END | disposition home or self-care (01) | LOC: LAB 09:03 | PROVIDERS: ATTEND Psychiatry & Neurology Neurology | DX: G95.9 Disease of spinal cord, unspecified (principal) ==

== ENCOUNTER → 2025-08-02 | Outpatient (CLI) | payer OTHER | END | disposition home or self-care (01) | LOC: MRI 03:29 | PROVIDERS: ATTEND Psychiatry & Neurology Neurology | DX: M47.817 Spondylosis without myelopathy or radiculopathy, lumbosacral region (principal); G03.8 Meningitis due to other specified causes; G95.9 Disease of spinal cord, unspecified ==